=== PATIENT | male | born 1965 | race African-American/Black ===

== ENCOUNTER 2019-01-29 19:13 | Emergency (ER) | payer OTHER ==
[~2019-01-29] VITALS: Ht 188 cm; Wt 108.9 kg
[2019-01-29 19:30] VITALS: BP 119/86
--- NOTE | 2019-01-29 19:30 | NUR ---
. ED Nurse Note: Patient walked in to ED c/o left lower back pain x 1 day. Stated that he had a low grade fever this morning and that he was sweating profusely. Has history of appendicitis. Temp 97.8 at the ED. No SOB. Breathing even and unlabored. VSS.
--- NOTE | 2019-01-29 19:59 | NUR ---
ED Nurse Note: ERMD at bedside.
--- NOTE | 2019-01-29 20:00 | NUR ---
ED Nurse Note: IV line established. Blood and urine collected and sent to lab.
[2019-01-29] MEDS ORDERED: Ketorolac 30mg Inj IV ONE (20:15)
[2019-01-29] MEDS ORDERED: Omnipaque-300 100ml vial INJ PRN (20:15)
--- NOTE | 2019-01-29 20:15 | NUR ---
ED Nurse Note: Toradol 0.5ml not administered. Pt refused medication. MD made aware and acknowledged. Medication was returned to the [facility].
[2019-01-29 20:23] LABS: APPEARANCE,URINE CLEAR; BILIRUBIN, URINE NEGATIVE (NEGATIVE); COLOR,URINE PALE YELLOW; GLUCOSE, URINE (UA) NEGATIVE (NEGATIVE); KETONES,URINE 1+ (NEGATIVE); LEUKOCYTE ESTERASE ,URINE NEGATIVE (NEGATIVE); NITRITE,URINE NEGATIVE (NEGATIVE); PH,URINE 6 (4.5-8.0); PROTEIN,URINE NEGATIVE (NEGATIVE); UROBILINOGEN,URINE NORMAL MG/DL (0.0-1.0)
[2019-01-29 20:32] LABS: BASOPHILS % (AUTO) 1.2 % (0.0-2.0); HEMATOCRIT 42.6 % (42.0-52.0); HEMOGLOBIN 14.8 G/DL (14.2-18.0); LYMPHOCYTES % (AUTO) 24.7 % (20.0-45.0); MEAN CORPUSCULAR VOLUME 84 FL (80-99); MONOCYTES % (AUTO) 8.2 % (1.0-10.0); NEUTROPHILS % (AUTO) 64.8 % (45.0-75.0); PLATELET COUNT 288 K/UL (150-450); RED CELL DISTRIBUTION WIDTH 11.9 % (11.6-14.8); WHITE BLOOD COUNT 10.4 K/UL (4.8-10.8)
--- NOTE | 2019-01-29 20:52 | Diagnostic Imaging Report ---
EXAM: XR Chest, 1 View CLINICAL HISTORY: ALOC TECHNIQUE: Frontal view of the chest. COMPARISON: No relevant prior studies available. FINDINGS: The cardiac and mediastinal silhouettes are unremarkable. Negative for parenchymal consolidation, pneumothorax or pleural fluid collections.
[2019-01-29 21:01] LABS: ANION GAP 6 mmol/L (5-15); BLOOD UREA NITROGEN 12 mg/dL (7-18); CALCIUM 8.9 MG/DL (8.5-10.1); CARBON DIOXIDE 33 MMOL/L (21-32); CHLORIDE 104 MMOL/L (98-107); CREATININE 1.4 MG/DL (0.55-1.30); POTASSIUM 3.7 MMOL/L (3.5-5.1); SODIUM 143 MMOL/L (136-145)
[2019-01-29 21:11] LABS: ALANINE AMINOTRANSFERASE 23 U/L (12-78); ALBUMIN 3.4 G/DL (3.4-5.0); ALBUMIN/GLOBULIN RATIO 0.7 (1.0-2.7); ALKALINE PHOSPHATASE 64 U/L (46-116); ASPARTATE AMINO TRANSFERASE 15 U/L (15-37); CREATINE KINASE 107 U/L (26-308)
[2019-01-29 21:18] LABS: BILIRUBIN,DIRECT 0.3 MG/DL (0.0-0.3)
--- NOTE | 2019-01-29 21:26 | NUR ---
ED Nurse Note: EKG order cancelled by ABIMBOLA.
--- NOTE | 2019-01-29 21:28 | Emergency Room Report ---
History of Present Illness General Chief Complaint: Abdominal Pain Source: Patient, Significant Other Present Illness HPI The patient presents presents with left lower quadrant pain that began yesterday evening. The pain is constant. It is worse when the abdomen is palpated. Gradually came on. He has had loose stools. There is been no blood in the stool. He denies dysuria. He has felt feverish. He was given Tylenol with some improvement in symptoms but pain is persisted. Last night the pain was 10/10. Today the pain is 6/10 and aching and somewhat sharp. It does not radiate to the flank or to the groin. He has had problems with his digestion for many years. 2 years ago he had a similar presentation with pain and took antibiotics on his own. He never saw physician about this. The pain resolved. The pain was less than this presentation. Is a history of inguinal hernia. This pain is different than his hernia discomfort. He denies dysuria or hematuria. No history of renal stones or family history of such. No chills, sore throat, chest pain, palpitations, shortness of breath, joint pain, rashes, depression, anxiety, visual changes, dizziness, headache. He had a CAT scan done before with IV contrast and had a flushing sensation that bother him. He is uncertain what the CT scan revealed at that time. Allergies: Coded Allergies: PENICILLINS (Verified Allergy, Unknown, 01/29/19) Patient History Past Medical History: see triage record Past Surgical History: appy Social History: Denies: smoking, alcohol use, drug use Social History Narrative Works with television production Reviewed Nursing Documentation: PMH: Agreed; PSxH: Agreed Nursing Documentation-PM Past Medical History: No History, Except For Hx Hypertension: Yes Review of Systems All Other Systems: negative except mentioned in HPI Physical Exam Vital Signs Date Time Temp Pulse Resp B/P (MAP) Pulse Ox O2 Delivery O2 Flow Rate FiO2 01/29/19 19:24 98.4 99 14 119/86 (97) 95 Room Air Sp02 EP Interpretation: reviewed, normal General Appearance: well appearing, no apparent distress, GCS 15 Head: normocephalic Eyes: bilateral eye normal inspection, bilateral eye PERRL, bilateral eye EOMI ENT: moist mucus membranes Neck: supple Respiratory: lungs clear, normal breath sounds Cardiovascular #1: regular rate, rhythm Cardiovascular #2: 2+ radial (R) Gastrointestinal: normal inspection, normal bowel sounds, no mass, non- distended, no rebound, guarding - Minimal, tenderness - Left lower quadrant Genitourinary: no CVA tenderness Musculoskeletal: back normal, normal range of motion, gait/station normal Neurologic: alert, oriented x3, normal inspection Psychiatric: mood/affect normal Skin: no rash, warm/dry Medical Decision Making Diagnostic Impression: Primary Impression: Diverticulitis Additional Impression: Renal insufficiency ER Course The patient presents with left lower quadrant pain. Differential includes renal stone, UTI, diverticulitis, gastroenteritis amongst others. Evaluation with labs. CT of the abdomen is ordered. Treatment with IV hydration and analgesia. Patient refuses CT scan. Once lab evaluation initially and then will consider CT scan. Patient refuses Toradol. Labs with normal white count without left shift. CMP with elevated renal function. Urinalysis clear. Most likely diagnosis is diverticulitis. Patient started on antibiotics here. Discussed findings with patient. Discussed treatment plan with patient. Patient stable for outpatient observation and treatment. Laboratory Tests Test 01/29/19 20:09 White Blood Count 10.4 K/UL (4.8-10.8) Red Blood Count 5.10 M/UL (4.70-6.10) Hemoglobin 14.8 G/DL (14.2-18.0) Hematocrit 42.6 % (42.0-52.0) Mean Corpuscular Volume 84 FL (80-99) Mean Corpuscular Hemoglobin 29.0 PG (27.0-31.0) Mean Corpuscular Hemoglobin Concent 34.7 G/DL (32.0-36.0) Red Cell Distribution Width 11.9 % (11.6-14.8) Platelet Count 288 K/UL (150-450) Mean Platelet Volume 4.8 FL (6.5-10.1) L Neutrophils (%) (Auto) 64.8 % (45.0-75.0) Lymphocytes (%) (Auto) 24.7 % (20.0-45.0) Monocytes (%) (Auto) 8.2 % (1.0-10.0) Eosinophils (%) (Auto) 1.0 % (0.0-3.0) Basophils (%) (Auto) 1.2 % (0.0-2.0) Erythrocyte Sedimentation Rate 47 MM/HR (0-20) H Prothrombin Time 10.8 SEC (9.30-11.50) Prothrombin Time INR 1.0 (0.9-1.1) PTT 30 SEC (23-33) Urine Color Pale yellow Urine Appearance Clear Urine pH 6 (4.5-8.0) Urine Specific [place] 1.010 (1.005-1.035) Urine Protein Negative (NEGATIVE) Urine Glucose (UA) Negative (NEGATIVE) Urine Ketones 1+ (NEGATIVE) H Urine Blood Negative (NEGATIVE) Urine Nitrite Negative (NEGATIVE) Urine Bilirubin Negative (NEGATIVE) Urine Urobilinogen Normal MG/DL (0.0-1.0) Urine Leukocyte Esterase Negative (NEGATIVE) Sodium Level 143 MMOL/L (136-145) Potassium Level 3.7 MMOL/L (3.5-5.1) Chloride Level 104 MMOL/L (98-107) Carbon Dioxide Level 33 MMOL/L (21-32) H Anion Gap 6 mmol/L (5-15) Blood Urea Nitrogen 12 mg/dL (7-18) Creatinine 1.4 MG/DL (0.55-1.30) H Estimate Glomerular Filtration Rate > 60 mL/min (>60) Glucose Level 116 MG/DL (74-106) H Calcium Level 8.9 MG/DL (8.5-10.1) Magnesium Level 2.0 MG/DL (1.8-2.4) Total Bilirubin 2.0 MG/DL (0.2-1.0) H Direct Bilirubin 0.3 MG/DL (0.0-0.3) Aspartate Amino Transferase (AST) 15 U/L (15-37) Alanine Aminotransferase (ALT) 23 U/L (12-78) Alkaline Phosphatase 64 U/L (46-116) Total Creatine Kinase 107 U/L (26-308) Total Protein 8.1 G/DL (6.4-8.2) Albumin 3.4 G/DL (3.4-5.0) Globulin 4.7 g/dL Albumin/Globulin Ratio 0.7 (1.0-2.7) L Lipase 53 U/L (73-393) L Last Vital Signs Date Time Temp Pulse Resp B/P (MAP) Pulse Ox O2 Delivery O2 Flow Rate FiO2 01/29/19 21:38 98.1 78 19 121/81 97 Room Air Status: improved Disposition: HOME, SELF-CARE Condition: Improved Scripts Ibuprofen* (MOTRIN*) 600 Mg Tablet 600 MG ORAL Q6H PRN for For Pain, #16 TAB 0 Refills Prov: Dinesh Shields MD 01/29/19 Cephalexin* (KEFLEX*) 500 Mg Capsule 500 MG ORAL EVERY 6 HOURS for 7 Days, #28 CAP Prov: Dinesh Shields MD 01/29/19 Metronidazole* (FLAGYL*) 500 Mg Tablet 500 MG ORAL BID, #14 TAB 0 Refills Prov: Dinesh Shields MD 01/29/19 Referrals: NON PHYSICIAN (PCP) Dinesh Shields MD Jan 29, 2019 21:28
[2019-01-29] MEDS ORDERED: Cephalexin 500mg cap ORAL ONE (21:30)
[2019-01-29] MEDS ORDERED: metroNIDAZOLE 500mg tab ORAL ONE (21:30)
[2019-01-29] MEDS ORDERED: FLAGYL500 MG ORAL (21:32)
[2019-01-29] MEDS ORDERED: IBUPROFEN600 MG ORAL (21:32)
[2019-01-29] MEDS ORDERED: CEPHALEXIN500 MG ORAL (21:32)
[2019-01-29 21:38] VITALS: BP 121/81
--- NOTE | 2019-01-29 21:38 | NUR ---
ED Nurse Note: Pt cleared by ERMD for discharge. DC instructions/prescription was given and explained to pt and verbalized understanding of teachings. All medical deviecs such as ID band and IV line removed. Pt is AAO x4, ambulatory and left with all personal belongings. Accompanied by his .
== END 2019-01-29 21:58 | disposition home or self-care (01) ==
LOC: EMR 20:50
DX: K57.92 Diverticulitis of intestine, part unspecified, without perforation or abscess without bleeding (principal); N28.9 Disorder of kidney and ureter, unspecified; I10 Essential (primary) hypertension; Z88.0 Allergy status to penicillin
CPT/HCPCS: 36415; 71045; 80053; 81003; 82248; 82550; 83690; 83735; 85025; 85610; 85651; 85730; 96361; 96374; Z7502; 99284